=== PATIENT | female | born 1995 | race Two or more races ===

== ENCOUNTER 2023-02-24 15:47 | Observation (INO) | payer MEDICAID ==
[~2023-02-24] VITALS: Ht 157.5 cm; Wt 93.0 kg
== END 2023-02-24 16:54 | disposition home or self-care (01) ==
LOC: UNDOADMOB 15:47 → LDRP 15:47
PROVIDERS: ADMIT Obstetrics & Gynecology; ATTEND Obstetrics & Gynecology
DX: O26.893 Other specified pregnancy related conditions, third trimester (principal); R10.30 Lower abdominal pain, unspecified; R51.9 Headache, unspecified; Z3A.34 34 weeks gestation of pregnancy
CPT/HCPCS: 59025; 81002; 94760; G0378